=== PATIENT | male | born 1955 | race Caucasian/White ===

== ENCOUNTER 2021-04-26 20:34 | Inpatient (IN) | payer MEDICARE, MEDICAID ==
[~2021-04-26] VITALS: Ht 172.7 cm; Wt 61.0 kg
[2021-04-26] MEDS ORDERED: ACETAMINOPHEN 500 MG TABLET PO ONE (21:15)
[2021-04-26] MEDS ORDERED: BACITRACIN 0.9 GM PACKET OINTMENT TP ONE (21:15)
[2021-04-26] MEDS ORDERED: PERTUSS(ACELL),DIPH,TET VAC/PF 0.5 ML SYRINGE IM. ONE (21:15)
[2021-04-26 21:37] LABS: BASOPHILS % (AUTO) 0.7 % (0.0-2.0); EOSINOPHILS % (AUTO) 3.1 % (1.0-6.0); HEMATOCRIT 37.7 % (41-53); HEMOGLOBIN 12.9 g/dL (13.5-17.5); LYMPHOCYTES # (AUTO) 1.2 K/uL (1.0-4.8); LYMPHOCYTES % (AUTO) 16.5 % (22.0-44.0); MEAN CORPUSCULAR HGB CONC 34.2 G/dL (31.0-37.0); MEAN CORPUSCULAR VOLUME 102 fL (80-100); MONOCYTES # (AUTO) 0.7 K/uL (0.1-1.0); NEUTROPHILS # (AUTO) 5.2 K/uL (1.8-7.7); NEUTROPHILS % (AUTO) 69.7 % (40.0-70.0); PLATELET COUNT (AUTO) 296 K/uL (150-450); RED BLOOD CELL COUNT(AUTO) 3.68 MIL/uL (4.50-5.90); RED CELL DISTRIBUTION WIDTH 13.9 % (11.5-14.5)
[2021-04-26 21:46] LABS: ANION GAP 10 mmol/L (8-16); CALCIUM, TOTAL 9.2 mg/dL (8.8-10.5); CARBON DIOXIDE 26 mmol/L (22-29); CHLORIDE 95 mmol/L (98-107); CREATININE 0.65 mg/dL (0.60-1.30); GLOMERULAR FILTR. RATE CALC > 60 mL/min (>60); GLUCOSE,RANDOM 74 mg/dL (70-110); POTASSIUM 3.7 mmol/L (3.5-5.1); SODIUM SERUM 131 mmol/L (136-145); UREA NITROGEN, BLOOD 6 mg/dL (7-18)
[2021-04-26 21:52] LABS: ALANINE AMINOTRANSFERASE 19 U/L (12-78); ALBUMIN 3.1 g/dL (3.4-5.0); ALKALINE PHOSPHATASE 47 U/L (46-116); ASPARTATE AMINOTRANSFERASE 26 U/L (15-37); BILIRUBIN,TOTAL 0.5 mg/dL (0.1-1.0); TOTAL PROTEIN, SERUM 6.5 g/dL (6.4-8.2)
[2021-04-26 23:19] LABS: AMPHET/METH SCREEN,URINE NEGATIVE (NEGATIVE); BARBITURATE SCREEN, URINE NEGATIVE (NEGATIVE); BENZODIAZEPINES SCREEN,URINE NEGATIVE (NEGATIVE); CANNABINOID SCREEN,URINE NEGATIVE (NEGATIVE); COCAINE SCREEN,URINE NEGATIVE (NEGATIVE); METHADONE SCREEN, URINE NEGATIVE (NEGATIVE); OPIATE SCREEN,URINE NEGATIVE (NEGATIVE)
[2021-04-26 23:20] LABS: PHENCYCLIDINE SCREEN,URINE NEGATIVE (NEGATIVE)
[2021-04-27] MEDS ORDERED: DOXY-354 PO (00:10)
[2021-04-27] MEDS ORDERED: CEPH500C3 PO (00:10)
[2021-04-27] MEDS ORDERED: ACET-66 PO (00:10)
[2021-04-27] MEDS ORDERED: DOXYCYCLINE HYCLATE 100 MG TABLET PO ONE (00:15)
[2021-04-27] MEDS ORDERED: CEPHALEXIN MONOHYDRATE 500 MG CAPSULE PO ONE (00:15)
[2021-04-27] MEDS ORDERED: ACETAMINOPHEN 325 MG TABLET PO PRN ×2 (01:45→08:00)
[2021-04-27] MEDS ORDERED: SODIUM CHLORIDE 0.9% 1,000 ML IV ONE (01:45)
[2021-04-27] MEDS ORDERED: ONDANSETRON HCL 4 MG/2 ML VIAL IVP PRN (01:45)
[2021-04-27] MEDS ORDERED: 0.9% SODIUM CHLORIDE 10 ML SYRINGE IVP PRN (01:45)
[2021-04-27 01:47] LABS: COVID AG,FIA SOURCE NASOPHARYNGEAL
[2021-04-27 03:30] VITALS: BP 120/81
[2021-04-27 08:00] VITALS: BP 116/78
[2021-04-27] MEDS ORDERED: ZOLPIDEM TARTRATE 5 MG TABLET PO PRN (08:00)
[2021-04-27] MEDS ORDERED: MAGNESIUM HYDROXIDE SUSPENSION 30 ML UDCUP PO PRN (08:00)
[2021-04-27] MEDS: HEPARIN SODIUM,PORCINE 5,000 UNITS/ML VIAL SQ SCH ×3 (08:00→23:51)
[2021-04-27] MEDS: MULTIVITAMINS WITH MINERALS, THERAPEUTIC TABLET PO SCH (10:29)
[2021-04-27] MEDS: ASPIRIN 81 MG CHEWABLE TABLET PO SCH (10:29)
[2021-04-27] MEDS: FAMOTIDINE 20 MG TABLET PO SCH (10:29)
[2021-04-27] MEDS: NICOTINE 21 MG/24 HOUR PATCH TD SCH (10:30)
[2021-04-27 12:15] VITALS: BP 121/81
[2021-04-27 12:22] VITALS: BP 121/81
[2021-04-27 16:07] VITALS: BP 110/74
[2021-04-27 20:15] VITALS: BP 132/84
[2021-04-28 00:28] VITALS: BP 130/78
[2021-04-28 04:28] VITALS: BP 118/75
[2021-04-28] MEDS: FAMOTIDINE 20 MG TABLET PO SCH (08:36)
[2021-04-28] MEDS: NICOTINE 21 MG/24 HOUR PATCH TD SCH (08:36)
[2021-04-28] MEDS: ASPIRIN 81 MG CHEWABLE TABLET PO SCH (08:36)
[2021-04-28] MEDS: HEPARIN SODIUM,PORCINE 5,000 UNITS/ML VIAL SQ SCH ×3 (08:37→23:53)
[2021-04-28] MEDS: MULTIVITAMINS WITH MINERALS, THERAPEUTIC TABLET PO SCH (08:37)
[2021-04-28 09:00] VITALS: BP 119/69
[2021-04-28 13:25] VITALS: BP 120/60
[2021-04-28 17:49] VITALS: BP_SYST 118; BP_SYST 120; BP_DIAS 55; BP_DIAS 70
[2021-04-28 20:00] VITALS: BP 106/70
[2021-04-29 00:13] VITALS: BP 139/77
[2021-04-29 04:23] VITALS: BP 117/57
[2021-04-29] MEDS: NICOTINE 21 MG/24 HOUR PATCH TD SCH (08:42)
[2021-04-29] MEDS: MULTIVITAMINS WITH MINERALS, THERAPEUTIC TABLET PO SCH (08:43)
[2021-04-29] MEDS: ASPIRIN 81 MG CHEWABLE TABLET PO SCH (08:43)
[2021-04-29] MEDS: FAMOTIDINE 20 MG TABLET PO SCH (08:43)
[2021-04-29 08:44] VITALS: BP_SYST 124; BP_SYST 147; BP_DIAS 75; BP_DIAS 95
[2021-04-29] MEDS: HEPARIN SODIUM,PORCINE 5,000 UNITS/ML VIAL SQ SCH ×2 (08:44→16:36)
[2021-04-29 15:55] VITALS: BP 120/60
[2021-04-29] MEDS ORDERED: MULT-660 PO (18:02)
[2021-04-29] MEDS ORDERED: FAMO20 PO (18:02)
[2021-04-29] MEDS ORDERED: ASPI-1450 PO (18:02)
[2021-04-29] MEDS ORDERED: HEPA500018 SQ (18:03)
[2021-04-29] MEDS ORDERED: NICO-803 TD (18:03)
== END 2021-04-29 18:10 | DRG 552 ==
LOC: EMS 20:39 → 5S 04-27 02:00
PROVIDERS: ADMIT Internal Medicine; ATTEND Internal Medicine
DX: M54.30 Sciatica, unspecified side (principal); R55 Syncope and collapse; M48.061 Spinal stenosis, lumbar region without neurogenic claudication; W01.0XXA Fall on same level from slipping, tripping and stumbling without subsequent striking against object, initial encounter; S00.03XA Contusion of scalp, initial encounter; S60.511A Abrasion of right hand, initial encounter; M72.0 Palmar fascial fibromatosis [Dupuytren]; J44.9 Chronic obstructive pulmonary disease, unspecified; I10 Essential (primary) hypertension; F17.200 Nicotine dependence, unspecified, uncomplicated; Y93.01 Activity, walking, marching and hiking; Y92.89 Other specified places as the place of occurrence of the external cause; Y99.8 Other external cause status; Z88.0 Allergy status to penicillin; Z88.1 Allergy status to other antibiotic agents; Z71.6 Tobacco abuse counseling; Z79.82 Long term (current) use of aspirin; Z20.822 Contact with and (suspected) exposure to COVID-19
CPT/HCPCS: 70450; 72148; 73502; 80053; 84484; 85025; 90715; 93005; 97110; 97112; 97116; 97162; 97530; 97535; 99285; 99406; G0480; J1644